=== PATIENT | male | born 1995 | race Hispanic/Latino ===

== ENCOUNTER 2019-06-17 10:52 | Inpatient (IN) | payer OTHER ==
[2019-06-17] MEDS ORDERED: Fentanyl 100 MCG/2 ML VIAL ONE ×3 (11:05→14:04)
[2019-06-17] MEDS ORDERED: Lidocaine 1% w/Epinephrine 1:100K 20 ML VIAL ONE (11:45)
[2019-06-17] MEDS ORDERED: Bupivacaine 0.25% HCL 30 ML VIAL ONE (11:45)
[2019-06-17] MEDS ORDERED: Succinylcholine Chloride 20 MG/ML 10 ml SYRINGE FS ONE (11:47)
[2019-06-17] MEDS ORDERED: Glycopyrrolate 0.2 MG/ML 5 ML SYRINGE ONE (11:47)
[2019-06-17] MEDS ORDERED: Dexamethasone 20 MG/5 ML VIAL ONE (11:47)
[2019-06-17] MEDS ORDERED: Lidocaine 1% PF 5 ML VIAL ONE (11:47)
[2019-06-17] MEDS ORDERED: PROPOFOL 200 MG/20 ML VIAL ONE (11:47)
[2019-06-17] MEDS ORDERED: Ondansetron PF 4 MG/2 ML Vial ONE (11:47)
[2019-06-17] MEDS ORDERED: Rocuronium Bromide 10 MG/ML (10ML VIAL) ONE (11:47)
[2019-06-17] MEDS ORDERED: Midazolam HCl 2 mg/2 ml Vial ONE (12:16)
[2019-06-17] MEDS ORDERED: Promethazine HCl 25 MG/ML VIAL SLOW IVP PRN (13:26)
[2019-06-17] MEDS ORDERED: Promethazine HCl 25 MG/ML VIAL IM PRN ×2 (13:26→13:27)
[2019-06-17] MEDS ORDERED: Ondansetron HCl/PF 4 MG/2 ML Vial IVP PRN (13:26)
[2019-06-17] MEDS ORDERED: Dextrose 50% Abboject 50 ML SYRINGE SLOW IVP PRN (13:27)
[2019-06-17] MEDS ORDERED: Morphine 4 MG/ML VIAL SLOW IVP PRN (13:27)
[2019-06-17] MEDS ORDERED: Morphine 2 MG/ML SYRINGE SLOW IVP PRN (13:27)
[2019-06-17] MEDS ORDERED: hydrALAZINE 20 MG/ML VIAL SLOW IVP PRN (13:27)
[2019-06-17] MEDS ORDERED: HYDROcodone/Acetaminophen 10/325 mg Tablet PO PRN ×2 (13:27)
[2019-06-17] MEDS ORDERED: Dextrose 5% in Water 1,000 ML IV PRN (13:27)
[2019-06-17] MEDS ORDERED: Ondansetron PF 4 MG/2 ML Vial IVP PRN (13:27)
[2019-06-17 16:37] VITALS: BMI 38.4
[2019-06-17] MEDS: D5 1/2 NS w/20 mEq KCL 1,000 ML IV SCH ×2 (17:34→22:36)
[2019-06-17] MEDS: Piperacillin/Tazobactam 3.375 GM in Sodium Chloride 0.9% 100 ML IVPB SCH (17:36)
[2019-06-17] MEDS: Ketorolac Tromethamine 30 MG/ML VIAL IVP SCH (17:43)
[2019-06-17] MEDS: Famotidine/PF 20 mg/2ml Vial SLOW IVP SCH (20:51)
[2019-06-17] MEDS: Famotidine 20 MG TAB PO SCH (22:43)
[2019-06-18] MEDS: Piperacillin/Tazobactam 3.375 GM in Sodium Chloride 0.9% 100 ML IVPB SCH ×5 (00:38→23:27)
[2019-06-18] MEDS: Ketorolac Tromethamine 30 MG/ML VIAL IVP SCH ×3 (00:38→11:36)
[2019-06-18 05:47] LABS: #Lymphocytes 2.2 thou/uL (1.20-3.40); #Monocytes 1.6 thou/uL (0.11-0.59); #Neutrophils 12.9 thou/uL (1.40-6.50); %Basophils 0.1 % (0.0-1.0); %Eosinophils 0.1 % (0.0-10.0); %Lymphocytes 12.9 % (21.0-51.0); %Monocytes 9.7 % (0.0-10.0); %Neutrophils 77.3 % (42.0-75.0); Mean Corpuscular HGB CONC 33.3 g/dL (32.0-36.0); Mean Corpuscular Hemoglobin 30.4 pg (27.0-31.0); Mean Corpuscular Volume 91.1 fL (78.0-98.0); Mean Platelet Volume 7.2 fL (7.4-10.4); Platelet Count 219 thou/uL (130-400); RBC Distribution Width 11.9 % (11.5-14.5); Red Blood Cell (RBC) Count 3.96 mill/uL (4.70-6.10); White Blood Cell (WBC) Count 16.7 thou/uL (4.8-10.8)
[2019-06-18 06:09] LABS: Anion Gap 11 mmol/L (10-20); BUN (Urea Nitrogen) 12 mg/dL (8.9-20.6); Calc. Creatinine Clearance 189 mL/min (70-130); Calcium 8.4 mg/dL (7.8-10.44); Carbon Dioxide 29 mmol/L (22-29); Chloride 96 mmol/L (98-107); Estimated GFR-MDRD Greater than 90; Glucose 136 mg/dL (70-105); Potassium 4.3 mmol/L (3.5-5.1); Sodium 132 mmol/L (136-145)
[2019-06-18] MEDS: D5 1/2 NS w/20 mEq KCL 1,000 ML IV SCH ×2 (07:34→16:35)
[2019-06-18] MEDS: Enoxaparin Sodium 40 MG/0.4 ML SYRINGE SC SCH (08:11)
[2019-06-18] MEDS: Famotidine 20 MG TAB PO SCH ×2 (08:12→19:53)
[2019-06-18] MEDS: Famotidine/PF 20 mg/2ml Vial SLOW IVP SCH (08:14)
[2019-06-18] MEDS ORDERED: Acetaminophen 500 MG TAB PO PRN (15:05)
[2019-06-18] MEDS ORDERED: traMADol HCl 50 MG TAB PO PRN ×2 (15:05)
[2019-06-18] MEDS ORDERED: Ibuprofen 800 MG TAB PO SCH (15:15)
[2019-06-18] MEDS ORDERED: Acetaminophen 500 MG TAB PO SCH (15:15)
--- NOTE | 2019-06-18 15:49 | PRG ---
DATE OF SERVICE: 06/18/2019 SUBJECTIVE: Shivam Farooq underwent laparoscopic video appendectomy by Dr. Cortés yesterday, who was referred from [facility]. The patient states he is doing well. He is not too hungry, but he has not had any nausea or vomiting. He has been ambulating. IV fluid is infusing. OBJECTIVE: VITAL SIGNS: Temperature 99.3 degrees, heart rate 104, respiratory rate 18, blood pressure 111/70. JUNAID drain, 90 output in the last 24 hours. Drainage looks greenish, most enteric. Surgical wounds look good. ABDOMEN: Soft. LUNGS: Clear to auscultation. CARDIAC: Regular rate and rhythm. No murmur or gallop. ABDOMEN: Soft. He does not have any nausea or vomiting. LABORATORY DATA: White count this morning is 16, hemoglobin 12. ASSESSMENT AND PLAN: Doing well after appendectomy laparoscopic. He is feeling well. We will keep him another day because of the character of the drain output. We will check another CBC and basic metabolic in the morning. Job ID: [id number]
[2019-06-19] MEDS: D5 1/2 NS w/20 mEq KCL 1,000 ML IV SCH ×3 (00:57→23:37)
--- NOTE | 2019-06-19 04:52 | OP ---
DATE OF PROCEDURE: 06/17/2019 PREOPERATIVE DIAGNOSIS: Acute appendicitis. PROCEDURE PERFORMED: Laparoscopic appendectomy. INDICATIONS FOR PROCEDURE: The patient is a 23-year-old male with a 2-1/2-day history of right lower quadrant pain. CT scan showed appendicitis. FINDINGS: Gangrenous appendicitis with local perforation, periappendiceal abscess. DESCRIPTION OF PROCEDURE: After informed consent was obtained, the patient was taken to the operating room, given general endotracheal anesthesia, placed in supine position. Abdomen was prepped and draped in usual fashion. Local anesthesia was infiltrated subcutaneously and deep. A periumbilical incision was performed. Subcu divided sharply. The fascia was grasped. Two stay sutures of 0 Vicryl placed on either side of midline. Midline was incised. Digital palpation revealed no local adhesions. A blunt 12 mm trocar inserted. Pneumoperitoneum was created to a pressure of 15 mmHg. A 0-degree laparoscope was inserted under direct vision. Two 5-mm ports were placed, one suprapubic, one in the right lateral abdomen. The appendix was encased within omentum. This was reflected back to release purulent fluid, this was aspirated for culture. Necrotic appendix was found. The mesoappendix was divided utilizing the LigaSure. Necrosis went just about to the base of the appendix. The appendix was divided at the cecum with a linear 45 mm white load stapler. The appendix was placed in an Endosac, removed from the abdomen in the Endosac. Hemostasis was assured. The pelvis was aspirated and irrigated. Appendiceal area was also irrigated. A drain was placed and brought out through the suprapubic incision, placed down into the pelvis and along the right gutter, sutured in place. Trocars and retractors were removed. The fascia was closed with interrupted 0 Vicryl sutures. Skin closed with interrupted 4-0 Rapide. Dermabond applied. The patient tolerated the procedure well, transferred to Recovery in good condition. Sponge and needle count verified, correct x2. Job ID: [id number]
[2019-06-19] MEDS: Piperacillin/Tazobactam 3.375 GM in Sodium Chloride 0.9% 100 ML IVPB SCH ×4 (05:30→23:37)
[2019-06-19 06:05] LABS: #Eosinphils 0.1 thou/uL (0.0-0.7); #Lymphocytes 1.2 thou/uL (1.20-3.40); #Monocytes 1.4 thou/uL (0.11-0.59); %Basophils 0.1 % (0.0-1.0); %Eosinophils 0.8 % (0.0-10.0); %Lymphocytes 6.8 % (21.0-51.0); %Monocytes 7.8 % (0.0-10.0); %Neutrophils 84.5 % (42.0-75.0); Hemoglobin 12.9 g/dL (14.0-18.0); Mean Corpuscular HGB CONC 34.2 g/dL (32.0-36.0); Mean Corpuscular Hemoglobin 31.1 pg (27.0-31.0); Mean Corpuscular Volume 91.1 fL (78.0-98.0); Mean Platelet Volume 7.5 fL (7.4-10.4); Platelet Count 269 thou/uL (130-400); Red Blood Cell (RBC) Count 4.14 mill/uL (4.70-6.10); White Blood Cell (WBC) Count 17.7 thou/uL (4.8-10.8)
[2019-06-19 06:25] LABS: ALT (SGPT) 12 U/L (8-55); AST (SGOT) 9 U/L (5-34); Albumin 3.3 g/dL (3.5-5.0); Alkaline Phosphatase 79 U/L (40-110); Anion Gap 14 mmol/L (10-20); BUN (Urea Nitrogen) 8 mg/dL (8.9-20.6); Bilirubin, Total 0.9 mg/dL (0.2-1.2); Calc. Creatinine Clearance 229 mL/min (70-130); Calcium 8.7 mg/dL (7.8-10.44); Carbon Dioxide 26 mmol/L (22-29); Chloride 98 mmol/L (98-107); Estimated GFR-MDRD Greater than 90; Globulin 3.3 g/dL (2.4-3.5); Glucose 134 mg/dL (70-105); Potassium 4.2 mmol/L (3.5-5.1); Protein, Total 6.6 g/dL (6.0-8.3); Sodium 134 mmol/L (136-145)
[2019-06-19] MEDS: Enoxaparin Sodium 40 MG/0.4 ML SYRINGE SC SCH (08:59)
[2019-06-19] MEDS: Famotidine 20 MG TAB PO SCH ×2 (08:59→20:18)
[2019-06-19] MEDS ORDERED: Iopamidol 370 76% 50 ML VIAL FS ONE (09:20)
[2019-06-19] MEDS ORDERED: Iopamidol-370 76% 500 ML 1 ML ONE (09:20)
--- NOTE | 2019-06-19 13:09 | PRG ---
DATE OF SERVICE: 06/19/2019 SUBJECTIVE: Shivam Farooq is status post laparoscopic appendectomy by Dr. Cortés. The patient's drain has a greenish color to it. This seems to be thinner than yesterday. JUNAID drainage in the last 24 hours is 35 mL, the best I can tell, although 65 mL over 24 hours, the weight is recorded. The patient is tolerating his diet. He states he is having greenish stools and drainage is greenish from the drain. OBJECTIVE: VITAL SIGNS: Temperature 99.6 degrees, heart rate 99, respiratory rate 18, and blood pressure 120/80. LUNGS: Clear to auscultation. CARDIAC: Regular rate and rhythm without murmur or gallop. ABDOMEN: Soft and tenderness in right abdomen. LABORATORY DATA: The patient's white count is 17,000 this morning, unchanged, yesterday 16,700. Hemoglobin 12.9. Differential is unremarkable. Basic metabolic profile normal. ASSESSMENT AND PLAN: Persistent elevated white count and drainage from the JUNAID drain is slightly worsened. We will obtain a repeat CAT scan and pelvis p.o. and IV contrast today. Hold his discharge today until Dr. Cortés evaluates him tomorrow. I doubt that he has a fistula, but I am concerned, thus we will wait for the CAT scan and Dr. Cortés's assessment. Job ID: [id number]
--- NOTE | 2019-06-19 16:07 | CT ---
CT ABDOMEN WITH CONTRAST CT PELVIS WITH CONTRAST: DATE: 06/19/2019 HISTORY: 23-year-old male status post recent appendectomy 2 days ago with JUNAID drain placement. Leukocytosis. COMPARISON: None TECHNIQUE: IV injection of iodinated contrast media: Isovue. Oral contrast media:Isovue FINDINGS: Drainage catheter enters just to the right of midline at the medial aspect of the right rectus abdomi nis muscle in the lower abdomen, loops just superior to the urinary bladder to the and left of midline in the pelvis, with distal tip in the right lower quadrant adjacent to the ascending colon. T his drainage catheter traverses a irregularly-shaped approximately 3.5 x 2.5 x 3.5 cm collection of gas and fluid located inferior to the cecum, proximal to the catheter distal tip. There is prominent fat stranding representing edema throughout the right lower quadrant of the peritoneal cavity including adjacent mesentery and right paracolic gutter, and throughout the upper and mid portions of the pelvic cavity, including around the urinary bladder. Minimally thickened smith of urinary bladder. 3.5 cm cyst at posterior aspect of right renal upper pole. Otherwise, kidneys, abdominal aorta, adren als, pancreas, liver, and spleen, are normal. Streaky patchy pulmonary densities at bases of bilateral lower lobes, right worse than left with mild to moderate right basilar consolidation. Tiny right pleural effusion. Numerous dilated small bowel loops with air and fluid throughout the abdominal cavity. Oral contrast has reached mid to distal jejunum. The left hemicolon is collapsed from the splenic flexure to the rectum. IMPRESSION: 1) status post recent appendectomy, with recent postsurgical changes including extensive edema throug hout the right lower quadrant of the peritoneal cavity and pelvic cavity. 2.) The external drainage catheter traverses an ill-defined collection of fluid and gas in the right lower quadrant inferior to the cecum. This could be either a small postsurgical hematoma or abscess. 3) pulmonary parenchymal densities at the bilateral lung bases, right greater than left. Probably ate lectasis. Cannot rule out pneumonia.
[2019-06-20] MEDS: Piperacillin/Tazobactam 3.375 GM in Sodium Chloride 0.9% 100 ML IVPB SCH ×3 (05:29→18:09)
[2019-06-20] MEDS: D5 1/2 NS w/20 mEq KCL 1,000 ML IV SCH ×2 (05:29→12:08)
[2019-06-20 06:03] LABS: #Eosinphils 0.4 thou/uL (0.0-0.7); #Lymphocytes 1.8 thou/uL (1.20-3.40); #Monocytes 1.6 thou/uL (0.11-0.59); %Basophils 0.2 % (0.0-1.0); %Eosinophils 2.5 % (0.0-10.0); %Lymphocytes 10.5 % (21.0-51.0); %Monocytes 9.4 % (0.0-10.0); %Neutrophils 77.3 % (42.0-75.0); Hemoglobin 11.4 g/dL (14.0-18.0); Mean Corpuscular HGB CONC 33.3 g/dL (32.0-36.0); Mean Corpuscular Hemoglobin 30.2 pg (27.0-31.0); Mean Corpuscular Volume 90.8 fL (78.0-98.0); Mean Platelet Volume 7.1 fL (7.4-10.4); Platelet Count 324 thou/uL (130-400); RBC Distribution Width 12.1 % (11.5-14.5); Red Blood Cell (RBC) Count 3.78 mill/uL (4.70-6.10); White Blood Cell (WBC) Count 16.8 thou/uL (4.8-10.8)
[2019-06-20] MEDS: Famotidine 20 MG TAB PO SCH ×2 (08:53→20:18)
[2019-06-20] MEDS: Enoxaparin Sodium 40 MG/0.4 ML SYRINGE SC SCH (08:55)
--- NOTE | 2019-06-20 09:03 | PRG ---
DATE OF SERVICE: 06/20/2019 SUBJECTIVE: The patient is reporting that he is hungry. His pain is improved. No nausea or vomiting. PHYSICAL EXAMINATION: VITAL SIGNS: His temperature is 98.1, pulse 92, blood pressure was 125/80. GENERAL: He is awake, alert. The drain was putting out some enteric-appearing fluid. Volume is now 20 mL. ABDOMEN: Obese, soft. Incisions okay. LABORATORY DATA: His white count is elevated at 16.8, H and H of 11 and 34, platelet count 324. 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 PLAN: CT scan of the abdomen and pelvis to ensure that there is not a fluid collection. Job ID: [id number]
[2019-06-20] MEDS: Ibuprofen 600 MG TAB PO PRN (20:29)
[2019-06-21] MEDS: Piperacillin/Tazobactam 3.375 GM in Sodium Chloride 0.9% 100 ML IVPB SCH ×4 (01:00→17:47)
[2019-06-21] MEDS: D5 1/2 NS w/20 mEq KCL 1,000 ML IV SCH ×3 (03:20→15:42)
[2019-06-21 06:15] LABS: Band 7 % (5-11); Hemoglobin 11.7 g/dL (14.0-18.0); Lymphocytes 11 % (21-51); MDiff Complete? YES; Mean Corpuscular HGB CONC 31.2 g/dL (32.0-36.0); Mean Corpuscular Hemoglobin 28.6 pg (27.0-31.0); Mean Corpuscular Volume 91.8 fL (78.0-98.0); Mean Platelet Volume 6.6 fL (7.4-10.4); Monocytes 10 % (0-10); Neutrophil 72 % (42-75); Platelet Count 380 thou/uL (130-400); Platelet Morphology Comment Appears Adequate; RBC Distribution Width 12.3 % (11.5-14.5); Red Blood Cell (RBC) Count 4.08 mill/uL (4.70-6.10); White Blood Cell (WBC) Count 15.6 thou/uL (4.8-10.8)
--- NOTE | 2019-06-21 08:40 | PRG ---
DATE OF SERVICE: 06/21/2019 SUBJECTIVE: The patient says he feels fine. He has no nausea or vomiting. No abdominal pain. He is tolerating full liquids well. OBJECTIVE: VITAL SIGNS: His temperature is 98.4, pulse 81, blood pressure 126/78. GENERAL: He is awake, alert, does not appear in any distress. ABDOMEN: Soft, nondistended, nontender. His incisions look good. Drain however is putting out feculent fluid. 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 PLAN: Continued IV antibiotics, bowel rest, many need TPN. Job ID: [id number]
[2019-06-21] MEDS: Enoxaparin Sodium 40 MG/0.4 ML SYRINGE SC SCH (09:07)
[2019-06-21] MEDS: Famotidine 20 MG TAB PO SCH ×2 (09:08→20:09)
[2019-06-21] MEDS: Ibuprofen 600 MG TAB PO PRN (17:47)
[2019-06-22] MEDS: Piperacillin/Tazobactam 3.375 GM in Sodium Chloride 0.9% 100 ML IVPB SCH ×5 (01:03→23:26)
[2019-06-22] MEDS: D5 1/2 NS w/20 mEq KCL 1,000 ML IV SCH ×3 (05:44→16:43)
[2019-06-22 05:50] LABS: #Eosinphils 0.7 thou/uL (0.0-0.7); #Lymphocytes 1.6 thou/uL (1.20-3.40); #Monocytes 1.5 thou/uL (0.11-0.59); #Neutrophils 10.9 thou/uL (1.40-6.50); %Basophils 0.3 % (0.0-1.0); %Eosinophils 4.7 % (0.0-10.0); %Lymphocytes 10.9 % (21.0-51.0); %Monocytes 10.2 % (0.0-10.0); %Neutrophils 73.8 % (42.0-75.0); Hemoglobin 11.8 g/dL (14.0-18.0); Mean Corpuscular HGB CONC 31.3 g/dL (32.0-36.0); Mean Corpuscular Hemoglobin 28.8 pg (27.0-31.0); Mean Platelet Volume 6.6 fL (7.4-10.4); Platelet Count 408 thou/uL (130-400); RBC Distribution Width 12.2 % (11.5-14.5); Red Blood Cell (RBC) Count 4.08 mill/uL (4.70-6.10); White Blood Cell (WBC) Count 14.8 thou/uL (4.8-10.8)
[2019-06-22] MEDS: Enoxaparin Sodium 40 MG/0.4 ML SYRINGE SC SCH (09:00)
[2019-06-22] MEDS: Famotidine 20 MG TAB PO SCH ×2 (09:01→20:13)
--- NOTE | 2019-06-22 13:10 | PRG ---
DATE OF SERVICE: 06/22/2019 SUBJECTIVE: The patient reports no pain, no nausea or vomiting. Tolerating full liquids well. He did have a fever last night to 100, it is down to 99. His pulse is 78, blood pressure 127/80. His white count is down to 14.8, hemoglobin and hematocrit are 11.8 and 37, and platelet count of 408. The drain output is thinner. It does not look feculent at this point. He did have 60 mL out. ASSESSMENT: Doing well. PLAN: Continue IV antibiotics. Job ID: [id number]
[2019-06-23 05:24] LABS: #Basophils 0.1 thou/uL (0.0-0.2); #Eosinphils 0.6 thou/uL (0.0-0.7); #Lymphocytes 1.8 thou/uL (1.20-3.40); #Monocytes 1.8 thou/uL (0.11-0.59); #Neutrophils 12.5 thou/uL (1.40-6.50); %Basophils 0.5 % (0.0-1.0); %Eosinophils 3.6 % (0.0-10.0); %Lymphocytes 10.7 % (21.0-51.0); %Monocytes 10.8 % (0.0-10.0); %Neutrophils 74.4 % (42.0-75.0); Hemoglobin 12.4 g/dL (14.0-18.0); Mean Corpuscular HGB CONC 31.5 g/dL (32.0-36.0); Mean Corpuscular Hemoglobin 29.1 pg (27.0-31.0); Mean Corpuscular Volume 92.1 fL (78.0-98.0); Mean Platelet Volume 6.6 fL (7.4-10.4); Platelet Count 474 thou/uL (130-400); RBC Distribution Width 12.5 % (11.5-14.5); Red Blood Cell (RBC) Count 4.27 mill/uL (4.70-6.10); White Blood Cell (WBC) Count 16.8 thou/uL (4.8-10.8)
[2019-06-23] MEDS: Piperacillin/Tazobactam 3.375 GM in Sodium Chloride 0.9% 100 ML IVPB SCH ×4 (05:26→23:24)
[2019-06-23] MEDS: Famotidine 20 MG TAB PO SCH ×2 (08:35→20:45)
[2019-06-23] MEDS: Enoxaparin Sodium 40 MG/0.4 ML SYRINGE SC SCH (08:41)
--- NOTE | 2019-06-23 12:42 | PRG ---
DATE OF SERVICE: 06/23/2019 SUBJECTIVE: The patient states he has absolutely no pain. He feels fine. He is tolerating full liquids well. He is passing gas, having bowel movements. He has been afebrile for over 24 hours now. OBJECTIVE: VITAL SIGNS: Temperature 98.4, pulse 88, blood pressure 135/84. GENERAL: He is awake and alert. ABDOMEN: Soft and obese. Incisions without evidence of infection. The drain has dropped off significantly with only 15 mL of output. ASSESSMENT: Improved. PLAN: One more day of IV antibiotics. Discharge tomorrow on oral antibiotics. Job ID: [id number]
[2019-06-23 19:41] VITALS: BP 144/80
--- NOTE | 2019-06-23 20:05 | PQF ---
MADDY STEVENS, MARKIE Ball JR, MD [id number] CLINICAL DOCUMENTATION IMPROVEMENT CLARIFICATION FORM: ICD-10 Updated PLEASE DO AN ADDENDUM TO THE PROGRESS NOTE WITH ANY DOCUMENTATION UPDATES OR ADDITIONS AND CARRY THROUGH TO DC SUMMARY. THANK YOU. DATE: 06/23/2019 ATTN: DR. Derek MITCHELL Please exercise your independent, professional judgment in responding to the clarification form. . Clinical indicators are provided on the bottom of this form for your review. Please check appropriate box(es): [ ] Sepsis present on admission [ ] Sepsis NOT present on admission [ ] Unable to determine Due to: [ ] Severe sepsis present on admission [ ] Severe Sepsis NOT present on admission [ ] Unable to determine with acute organ dysfunction of: ____ [ ] Septic Shock present on Admission [ ] Septic Shock NOT present on Admission [ ] Unable to determine [ ] Localized infection without sepsis [ ] Other diagnosis [ ] Unable to determine For continuity of documentation, please document condition throughout progress notes and discharge summary. Thank You. CLINICAL INDICATORS - SIGNS / SYMPTOMS / LABS / RESULTS AND LOCATION IN MR / WBC 16.7 5/1 TEMP 99.9 /3 WBC 17.7 5/2 TEMP 99.7 5/4 WBC 16.8 5/3 TEMP 100 5/5 WBC 15.6 5/4 TEMP 99.7 5/6 WBC 14.8 5/5 TEMP 100 5/7 WBC 16.8 5/7 TEMP 101 5/1 APPENDIX BACTERIAL CULTURE- ESCHERICHIA COLI, ANAEROBIC GRAM POSITIVE LIV, ANAEROBIC GRAM NEGATIVE LIV, ANAEROBIC GRAM NEGATIVE LIV # 2, ANAEROBIC GRAM NEGATIVE LIV # 3 5/3 BODY FLUID CULTURE ( JUNAID DRAIN) - ESCHERICHIA COLI / OP NOTE ([facility]) THE APPENDIX WAS ENCASED WITH OMENTUM. THIS WAS REFLECTED BACK TO RELEASE PURULENT FLUID, THIS WAS ASPIRATED FOR CULTURE. NECROTIC APPENDIX WAS FOUND. 5/ PN ([place]) THE PATIENT'S DRAIN HAS A GREENISH COLOR TO IT. PERSISTENT ELEVATED WHITE COUNT AND DRAINAGE FROM THE JUNAID DRAIN IS SLIGHTLY WORSENED. 06/20 PN ([facility]) APPENDICEAL STUMP LEAK DUE TO NECROSIS WITH FECAL FISTULA RISK: GANGRENOUS APPENDIX W PERFORATION , PERIAPPENDICEAL ABSCESS, (OPERATIVE NOTE/ [facility]) 06/18 TREATMENTS: LAPAROSCOPIC APPENDECTOMY (06/20) CULTURES( 06/16, 06/18) ZOSYN IV ( 06/16- PRESENT) THANK YOU! KWASI (This form is maintained as a part of the permanent medical record) 2014 [employer], [place]. All Rights Reserved [email or web address]
[2019-06-24] MEDS: Piperacillin/Tazobactam 3.375 GM in Sodium Chloride 0.9% 100 ML IVPB SCH (05:34)
[2019-06-24 06:07] VITALS: TEMP 98.4
[2019-06-24] MEDS: Famotidine 20 MG TAB PO SCH (08:12)
[2019-06-24] MEDS: Enoxaparin Sodium 40 MG/0.4 ML SYRINGE SC SCH (08:12)
--- NOTE | 2019-06-24 10:57 | DIS ---
DATE OF ADMISSION: 06/17/2019 DATE OF DISCHARGE: 06/24/2019 DISCHARGE DIAGNOSES: 1. Acute appendicitis necrotizing with perforation. 2. 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 PROCEDURES DURING ADMISSION: Laparoscopic appendectomy and drainage of periappendiceal abscess. HOSPITAL COURSE: The patient was admitted, taken to the operating room, where he underwent a laparoscopic appendectomy. He was found to have a gangrenous appendix all the way to the base. This was removed with the stapler onto the cecum. Postoperatively, he had a drain and he initially had a little bit of enteric fluid seen in the drain output that became feculent. A CT scan was performed that showed a 3-cm air-fluid level around the base of the cecum. He was placed at bowel rest and treated with IV antibiotics. He is doing fine now. He is afebrile. He is tolerating full liquids. Drain output is minimal. He is afebrile. He is discharged home on a full liquid diet with a drain on Levaquin and Flagyl and hydrocodone. He will follow up with me in 5 days for drain removal. Job ID: [id number]
== END 2019-06-24 10:33 | disposition home or self-care (01) | DRG 339 ==
LOC: SDC 10:52 → T4-B 15:51
PROVIDERS: ADMIT Surgery; ATTEND Surgery
PROC: 0DTJ4ZZ Resection of Appendix, Percutaneous Endoscopic Approach (ICD-10-PCS; principal; 2019-06-17)
DX: K35.33 Acute appendicitis with perforation, localized peritonitis, and gangrene, with abscess (principal); K63.2 Fistula of intestine
CPT/HCPCS: 36415; 74177; 80048; 80053; 85025; 87070; 87077; 87186; 87205; 88304; J0694; J1100; J1650; J1885; J2001; J2250; J2405; J2543; J2704; J3010; J3480; J3490; Q9967; S0020; S0028